=== PATIENT | female | born 1955 | race Caucasian/White ===

== ENCOUNTER 2016-10-28 08:04 | Day surgery (SDC) | payer MEDICAID ==
[2016-10-28] MEDS ORDERED: LIDOCAINE 1% 5 ML SDV ID PRN (08:55)
[2016-10-28] MEDS ORDERED: LR 1,000 ML IV ONE (08:55)
[2016-10-28] MEDS ORDERED: MIDAZOLAM 2 MG/2 ML VIAL ONE (10:07)
[2016-10-28] MEDS ORDERED: fentaNYL 100 MCG/2 ML INJ ONE (10:13)
[2016-10-28] MEDS ORDERED: PROPOFOL 200 MG/20 ML VIAL ONE (10:13)
--- NOTE | 2016-10-28 11:43 | GPN ---
PREPROCEDURE DIAGNOSIS: History of colon polyps. POSTPROCEDURE DIAGNOSIS: Small transverse colon polyp, status post removal. PROCEDURE: Colonoscopy with biopsies. MEDICATIONS: Monitored anesthesia care. INDICATIONS: Kaylin Infante is a 61-year-old female with a history of colonoscopy 5 years ago. I had recommended that she come back in 5 years secondary to colon polyp. The risks and the benefits of the procedure were discussed with the patient. Consent obtained. Risks include, but not limited to , bleeding, perforation, missed lesions, sedation. The patient is ASA class 2. DESCRIPTION OF PROCEDURE: The pediatric colonoscope was advanced into the terminal ileum which appe ared normal. The ileocecal valve, appendiceal orifice, cecum, ascending colon, hepatic flexure appe ared normal. A 1 mm polyp was removed from the transverse colon using cold biopsy forceps and sent to pathology. The splenic flexure, descending colon, sigmoid colon and rectum were normal. Retrofl exed views in the rectum were normal. IMPRESSION: A small 1 mm colon polyp removed from the transverse colon. RECOMMENDATIONS: 1. Discharge to home with escort. 2. Advance diet as tolerated. 3. Follow up with final pathology results. Results are available within 10 days. 4. Repeat colonoscopy based on pathology results. Repeat colonoscopy in 5 years if the polyp is fo und to be adenomatous, otherwise repeat colonoscopy in 10 years. I thank you for allowing me to participate in the care of your patient. Please do not hesitate to c all with questions. /[id number]/MODL
== END 2016-10-28 12:00 | disposition home or self-care (01) ==
LOC: FPAT 08:04 → FSGY 12:00
PROVIDERS: ATTEND Internal Medicine Gastroenterology
PROC: 0DBL8ZX Excision of Transverse Colon, Via Natural or Artificial Opening Endoscopic, Diagnostic (ICD-10-PCS; principal; 2016-10-28 09:45)
DX: K63.5 Polyp of colon (principal); E78.5 Hyperlipidemia, unspecified; Z86.010 Personal history of colon polyps
CPT/HCPCS: J2250; J2704; J3010